=== PATIENT | female | born 1970 | race Caucasian/White ===

== ENCOUNTER → 2017-06-27 | Outpatient (CLI) | payer BC ==
--- NOTE | ~2017-06-27 | 2DMMODE ---
[facility] [place] [place] [address] 2 D/M-MODE ECHOCARDIOGRAM Name: AC JAMISON Room #: REG [facility]#: [id number] Admission: 06/27/17 Attend Phys: Lee Escobedo Discharge: Date of : 68 Date of Service: 06/27/17 1536 Report #: [id number] THIS REPORT FOR: //name// APPROVED REPORT Study performed: 06/27/2017 14:09:38 EXAM: Comprehensive 2D, Doppler, and color-flow Echocardiogram Patient Location: Out-Patient Status: routine BSA: 1.73 HR: 145 bpm BP: 121/75 mmHg Rhythm: NSR Other Information Study Quality: Adequate Indications Palpitations 2D Dimensions RVDd: 36.26 mm LVEF(%): 60.19 (>50%) IVSd: 8.10 (7-11mm) LVOT Diam: 20.35 (18-24mm) LVDd: 42.94 mm PWd: 8.71 (7-11mm) Ascending Ao: 26.85 (22-36mm) LVDs: 29.28 (25-40mm) Aortic Root: 26.07 mm Atkinson's LVEF: 60.19 % Volumes Left Atrial Volume (Systole) Single Plane 4CH: 40.41 mL Single Plane 2CH: 30.52 mL LA ESV Index: 22.00 mL/m2 Aortic Valve AoV Peak Brennon.: 1.16 m/s AO Peak Gr.: 5.39 mmHg LVOT Max P.72 mmHg LVOT Max V: 0.96 m/s HARSHAL Vmax: 2.70 cm2 Mitral Valve E/A Ratio: 1.5 MV Decel. Time: 258.71 ms [facility] [place] [address] [place] [address] 2 D/M-MODE ECHOCARDIOGRAM Name: AC JAMISON Room #: [facility]#: [id number] Admission: 06/27/17 Attend Phys: Lee Escobedo Discharge: Date of : 68 Date of Service: 06/27/17 1536 Report #: [id number] MV E Max Brennon.: 0.76 m/s MV A Brennon.: 0.51 m/s MV PHT: 75.03 ms IVRT: 87.66 ms Pulmonary Valve PV Peak Brennon.: 0.88 m/s PV Peak Gr.: 3.07 mmHg Pulmonary Vein P Vein S: 0.49 m/s P Vein A: 0.18 m/s P Vein D: 0.33 m/s P Vein A Dur.: 120.0 msec P Vein S/D Ratio: 1.48 Tricuspid Valve TR Peak Brennon.: 1.77 m/s RAP Estimate: 5.00 mmHg TR Peak Gr.: 12.59 mmHg PA Pressure: 18.00 mmHg Left Ventricle The left ventricle is normal size. There is normal left ventricular wall thickness. The left ventricular systolic function is normal. LVEF is 55-60%. The left ventricular diastolic function is normal. Right Ventricle The right ventricle is normal size. The right ventricular systolic function is normal. Atria The left atrium size is normal. The right atrium size is normal. Aortic Valve The aortic valve is normal in structure. No aortic regurgitation is present. There is no aortic valvular stenosis. Mitral Valve The mitral valve is normal in structure. Trace to mild mitral regurgitation. No evidence of mitral valve stenosis. Tricuspid Valve The tricuspid valve is normal in structure. Mild tricuspid regurgitation. Estimated PAP 18 mmHg. Pulmonic Valve The pulmonary valve is normal in structure. Mild pulmonic [address] [address] 2 D/M-MODE ECHOCARDIOGRAM Name: AC JAMISON Room #: REG Stefanie#: [id number] Admission: 06/27/17 [facility] Dis[facility]: Date of : 68 Date of Service: 06/27/17 1536 Report #: [id number] regurgitation. Great Vessels The aortic root is normal in size. The ascending aorta is normal in size. IVC is normal in size and collapses >50% with inspiration. Pericardium There is no pericardial effusion. <Conclusion> The left ventricle is normal size. LVEF is 55-60%. The aortic valve is normal in structure. The mitral valve is normal in structure. Trace to mild mitral regurgitation. The tricuspid valve is normal in structure. Mild tricuspid regurgitation. Estimated PAP 18 mmHg. The pulmonary valve is normal in structure. Mild pulmonic regurgitation. There is no pericardial effusion. <ELECTRONICALLY SIGNED> By: Fernandez Tapia MD 06/27/17 1536 1536 1536 Fernandez Tapia MD /INF
== END ==
LOC: CV 07:44
DX: I37.1 Nonrheumatic pulmonary valve insufficiency (principal); I07.1 Rheumatic tricuspid insufficiency